=== PATIENT | female | born 1995 | race Caucasian/White ===

== ENCOUNTER 2016-11-20 18:34 | Emergency (ER) | payer OTHER ==
[~2016-11-20] VITALS: Ht 157.5 cm; Wt 69.9 kg
[~2016-11-20 18:34] MED LIST: CARB100T4 PO; CETI10CA PO; CLARITIN OTC; FLONASE; LEVE500T53 PO; SUMA25TA3 PO
[2016-11-20] MEDS ORDERED: FAMOTIDINE 20 MG/2 ML IVPush ONE (19:00)
[2016-11-20] MEDS ORDERED: SODIUM CHLORIDE FLUSH 10ML SYR IVF ONE (19:00)
[2016-11-20] MEDS ORDERED: FAMOTIDINE 20 MG TABLET PO ONE (19:00)
[2016-11-20] MEDS ORDERED: methylPREDNISolone SOD SUCC 125 MG/2 ML IVPush ONE (19:00)
[2016-11-20] MEDS ORDERED: ONDANSETRON 2MG/ML, 2ML IVPush ONE (19:00)
[2016-11-20] MEDS ORDERED: DIPHENHYDRAMINE 50 MG/ML, 1ML IVPush ONE (19:00)
[2016-11-20] MEDS ORDERED: EPINEPHRINE 1 MG/ML, 1ML SQ ONE (19:00)
[2016-11-20] MEDS ORDERED: SODIUM CHLORIDE 0.9% 1,000ML IVBOLUS ONE (19:00)
[2016-11-20] MEDS ORDERED: ALBUTEROL/IPRATROPIUM 2.5MG/0.5MG, 3 ML NPPB ONE (19:00)
[2016-11-20] MEDS ORDERED: ALBUTEROL/IPRATROPIUM 2.5MG/0.5MG, 3 ML ONE (19:04)
[2016-11-20] MEDS ORDERED: LEVO1TAB56 PO (19:14)
[2016-11-20] MEDS ORDERED: FLUT9.9S NAS (19:14)
[2016-11-20] MEDS ORDERED: DIPHENHYDRAMINE 50 MG/ML, 1ML ONE (19:22)
[2016-11-20] MEDS ORDERED: ONDANSETRON 2MG/ML, 2ML ONE (19:22)
[2016-11-20] MEDS ORDERED: methylPREDNISolone SOD SUCC 125 MG/2 ML ONE (19:22)
[2016-11-20] MEDS ORDERED: FAMOTIDINE 20 MG/2 ML ONE (19:23)
[2016-11-20] MEDS ORDERED: EPINEPHRINE 1 MG/ML, 1ML ONE (19:35)
[2016-11-20 21:59] VITALS: BP 134/70
== END 2016-11-20 22:01 | disposition home or self-care (01) ==
LOC: ED 21:45
DX: T78.01XA Anaphylactic reaction due to peanuts, initial encounter (principal); J98.01 Acute bronchospasm; J45.909 Unspecified asthma, uncomplicated; X58.XXXA Exposure to other specified factors, initial encounter
CPT/HCPCS: 94640; 96372; 96374; 96375; 99291; J0171; J1200; J2405; J2930; J7030; J7620; S0028